=== PATIENT | male | born 1970 | race Caucasian/White ===

== ENCOUNTER 2018-03-01 17:51 | Emergency (ER) | payer OTHER ==
[~2018-03-01] VITALS: Ht 188 cm; Wt 112.0 kg
[2018-03-01 18:01] VITALS: Ht 188 cm; Wt 112.0 kg
[2018-03-01 19:36] LABS: BASOPHIL % 1.4 % (0-2); PLATELET COUNT 254 x10^3mcL (130-400); RED CELL DISTRIBUTION WIDTH 13.6 % (11.5-14.5)
[2018-03-01 19:51] LABS: CALCIUM 8.9 mg/dL (8.5-10.1); CHLORIDE SERUM 104 mmol/L (98-107); GFR1 > 60 mL/min; GLUCOSE SERUM 89 mg/dL (74-106); POTASSIUM SERUM 4.4 mmol/L (3.5-5.1); SODIUM SERUM 139 mmol/L (136-145)
[2018-03-01 19:55] LABS: ALBUMIN 3.9 g/dL (3.4-5.0); ALKALINE PHOSPHATASE 76 U/L (46-116); ALT/SGPT 29 U/L (16-63); AST/SGOT 23 U/L (15-37); BILIRUBIN TOTAL 0.48 mg/dL (0.20-1.00); TOTAL PROTEIN, SERUM 7.9 g/dL (6.4-8.2)
[2018-03-01 20:34] VITALS: BP 119/70
== END 2018-03-01 21:04 | disposition home or self-care (01) ==
LOC: ED 17:51
PROVIDERS: Emergency Medicine
DX: R07.89 Other chest pain (principal); F41.9 Anxiety disorder, unspecified; E78.00 Pure hypercholesterolemia, unspecified; R42 Dizziness and giddiness; R51 Headache
CPT/HCPCS: 36415; Q0092